=== PATIENT | female | born 1965 | race Caucasian/White ===

== ENCOUNTER 2018-12-09 06:05 | Inpatient (IN) | payer BC ==
--- NOTE | 2018-12-06 13:38 | HP ---
Admitting History and Physical - Primary Care Physician PCP: Kentrell Meza - Admission Chief Complaint: Left breast cancer History of Present Illness: 53 year old perimenapausal female with AX1N mutation BRCA1 negative, and a sister BRCA 1 positive with breast cancer at age 60 and a brother BRCA1 positive with pancreatic cancer.She underwent screening mammogram and US 10/2018 showing calcifications and slight associated density UIQ .9cm x1.5x1.1cm at 1: 00 2 cm FN was seen in left breast on US. There was also a separate suspicious densoity left breast 11:00 3 cm FN 5x5 mm. 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 Breast MRI showed localized left breast cancer and bno adenopathy. History Source: Patient Limitations to Obtaining History: No Limitations - Past Medical History Additional Past Medical History: Obesity - Past Surgical History Additional Past Surgical History: right thigh excision lipoma right core bx LCIS 2016 no excision follow up wnl - Smoking History Smoking history: Never smoked Have you smoked in the past 12 months: No - Alcohol/Substance Use Hx Alcohol Use: Yes (social) Home Medications - Allergies Allergies/Adverse Reactions: Allergies Allergy/AdvReac Type Severity Reaction Status Date / Time No Known Allergies Allergy Verified 12/06/18 13:39 Family Disease History - Family Disease History Family Disease History: CA: Grandparent (pat GM ovarian ca 40), Father (CRC 68) , Mother (lung ca), Brother (pancreatic ca BRCA1+// bother prostate ca 65), Sister (breast ca BRCA1+) Other Family History: pat uncle breast ca 80 Physical Examination Constitutional: Yes: Obese Breast(s): Yes: Other ( ptotic D cup breastspost bx scarring changes upper aspect left breast no adenopathy or palpated masses) Problem List - Problems (1) Breast cancer, left breast Code(s): C50.912 - MALIGNANT NEOPLASM OF UNSPECIFIED SITE OF LEFT FEMALE BREAST Qualifiers: Breast location: upper inner quadrant of breast Estrogen receptor status: positive Patient sex: female Qualified Code(s): C50.212 - Malignant neoplasm of upper-inner quadrant of left female breast; Z17.0 - Estrogen receptor positive status [ER+] Assessment/Plan Bilateral total mastectomies left sentenel node biopsy ,lymphoscintogram, possible axillary node dissection LESIA
[2018-12-09] MEDS ORDERED: ENOXAPARIN NA (PORCINE) 60 MG/0.6 ML DISP.SYRIN SQ ONE (07:00)
[2018-12-09] MEDS ORDERED: IBUPROFEN 800 MG/8 ML IJ IVPB ONE (07:09)
[2018-12-09] MEDS ORDERED: DEXMEDETOMIDINE HCL 200 MCG/2 ML IVPB ONE (07:09)
[2018-12-09] MEDS ORDERED: DESFLURANE GAS 240 ML BOTTLE IH ONE (07:10)
[2018-12-09] MEDS ORDERED: ROCURONIUM BROMIDE 50 MG/5 ML VIAL ONE (07:50)
[2018-12-09] MEDS ORDERED: SUCCINYLCHOLINE CHLORIDE 200 MG/10 ML SYRINGE ONE (07:51)
[2018-12-09] MEDS ORDERED: KETAMINE HCL 200 MG/20 ML VIAL ONE (07:53)
[2018-12-09] MEDS ORDERED: PROPOFOL 20 ML ONE ×4 (07:53→12:33)
[2018-12-09] MEDS ORDERED: MIDAZOLAM HCL 2 MG/2 ML SINGLE DOSE VIAL ONE (07:53)
[2018-12-09] MEDS ORDERED: LIDOCAINE HCL/PF 2% SDV 5ML VIAL ONE ×3 (07:59→08:16)
[2018-12-09] MEDS ORDERED: ceFAZolin SODIUM 1 GM VIAL ONE ×2 (08:16→23:38)
[2018-12-09] MEDS ORDERED: SODIUM CHLORIDE 0.9% P/F 10 ML VIAL IJ ONE (08:16)
[2018-12-09] MEDS ORDERED: ONDANSETRON 4 MG/2 ML VIAL ONE (08:16)
[2018-12-09] MEDS ORDERED: DEXAMETHASONE SOD PHOSPHATE 4 MG/1 ML VIAL ONE (08:16)
[2018-12-09] MEDS ORDERED: PAPAVERINE HCL 30 MG/1 ML 10 ML VIAL NR ONE (08:21)
[2018-12-09] MEDS ORDERED: HEPARIN NA (PORCINE) 5,000 UNITS/ML 1ML VIAL ONE (08:22)
[2018-12-09] MEDS ORDERED: BUPIVACAINE LIPOSOME/PF (EXPAREL) 266 MG/20 ML VIAL ONE (08:22)
[2018-12-09] MEDS ORDERED: MAGNESIUM SULF 50% (8.12 MEQ/2 ML-1 GM VIAL) ONE ×2 (08:22→14:36)
[2018-12-09] MEDS ORDERED: BUPIVACAINE HCL/PF 0.25% (2.5MG/ML) 10 ML VIAL ONE (08:22)
[2018-12-09] MEDS ORDERED: ACETAMINOPHEN INJECTION 100 ML IVPB ONE (08:24)
[2018-12-09] MEDS ORDERED: ISOSULFAN BLUE 10 MG/ML VIAL SQ ONE (08:34)
[2018-12-09] MEDS ORDERED: ceFAZolin SODIUM 1 GM VIAL IVPB ONE (09:22)
[2018-12-09] MEDS ORDERED: PHENYLEPHRINE HCL 10 MG/1 ML SINGLE DOSE VIAL ONE (09:47)
[2018-12-09] MEDS ORDERED: ePHEDrine SULFATE 50 MG/1 ML AMPULE ONE (09:50)
[2018-12-09] MEDS ORDERED: ONDANSETRON 4 MG/2 ML VIAL IVPUSH PRN (10:08)
[2018-12-09] MEDS ORDERED: LACTATED RINGERS SOLUTION 1,000 ML IV SCH (10:15)
[2018-12-09] MEDS ORDERED: VECURONIUM BROMIDE 10 MG VIAL ONE ×4 (10:35→16:29)
[2018-12-09] MEDS ORDERED: LIDOCAINE HCL 2% (20ML MULTI-DOSE VIAL) NR ONE (14:39)
[2018-12-09] MEDS ORDERED: KETOROLAC TROMETHAMINE 30 MG/1 ML VIAL ONE (16:43)
[2018-12-09] MEDS ORDERED: LABETALOL HCL 5 MG/1 ML (100MG/20 ML VIAL) ONE (17:01)
[2018-12-09] MEDS ORDERED: GLYCOPYRROLATE 0.2 MG/1 ML VIAL ONE (17:58)
[2018-12-09] MEDS ORDERED: NEOSTIGMINE METHYLSULFATE 0.5 MG/1 ML - 10 ML MDV ONE (17:58)
[2018-12-09] MEDS ORDERED: oxyCODONE HCL 5 MG TABLET PO PRN (18:00)
[2018-12-09] MEDS ORDERED: DEXTROSE 5%-0.45% SALINE 1,000 ML IV SCH (18:00)
[2018-12-09] MEDS: HYDROmorphone *PCA* 10MG/50ML DISP.SYRIN PCA SCH ×2 (18:35→19:53)
[2018-12-09] MEDS ORDERED: HYDROmorphone *PCA* 10MG/50ML DISP.SYRIN ONE (18:54)
[2018-12-09] MEDS: ASPIRIN 325 MG TABLET PO SCH (19:30)
[2018-12-09] MEDS ORDERED: ASPIRIN 325 MG ENTERIC COATED TABLET (FP) ONE (19:36)
[2018-12-09] MEDS: ACETAMINOPHEN 1000 MG/100 ML VIAL (NON FORMULARY) IVPB PRN ×2 (19:45→23:44)
[2018-12-09] MEDS ORDERED: CEFAZOLIN 1 GM in DEXTROSE 5%-WATER - 50 ML IVPB SCH (21:00)
--- NOTE | 2018-12-09 22:24 | CONSULT ---
Consultation: CONSULT SERVICE: ICU Resident HISTORY OF PRESENT ILLNESS: 53yo F with no significant history who presents today after b/l mastectomy with reconstruction in LESIA flap creation and sentinel node resection performed by Dr. eMza. Mastectomy was performed due to pt having 1st degree relative BRCA I positive with multiple masses seen on mammography and follow-up ultrasound. Pt is placed in ICU for doppler hourly check of LESIA flap. Pt's procedure was uncomplicated, had minimal EBL, and received 4L of IVF intraoperatively. Pt recovered without complication and is doing well with no complaints of pain at this time. FamHx: Sister - BRCA 1 +; Breast Ca 60yo Brother - BRCA 1 +; pancreatic Ca REVIEW OF SYSTEMS: As per HPI PHYSICAL EXAMINATION Vital Signs 12/09/18 12/09/18 12/09/18 06:49 06:50 18:21 Temperature 98.5 F 98.1 F Pulse Rate 75 64 Respiratory 18 14 Rate Blood Pressure 140/88 112/46 L O2 Sat by Pulse 99 100 Oximetry (%) 12/09/18 12/09/18 12/09/18 18:35 18:50 19:05 Temperature Pulse Rate 67 70 69 Respiratory 14 16 18 Rate Blood Pressure 98/61 110/57 L 106/58 L O2 Sat by Pulse 97 98 100 Oximetry (%) 12/09/18 12/09/18 12/09/18 19:20 19:35 19:50 Temperature Pulse Rate 67 65 70 Respiratory 16 14 14 Rate Blood Pressure 107/64 115/60 104/66 O2 Sat by Pulse 100 100 100 Oximetry (%) 12/09/18 12/09/18 20:05 20:20 Temperature Pulse Rate 66 65 Respiratory 14 14 Rate Blood Pressure 115/60 119/67 O2 Sat by Pulse 100 100 Oximetry (%) GENERAL: NAD, Awake, alert, and fully oriented HEENT: NC/AT, EOMI, TYSON, sclera anicteric, MMM NECK: No JVD LUNGS: Posterior lung auscultation CTA b/l. No wheezes, and no crackles. No accessory muscle use. RA SpO2 98% DOPPLERS: strong doppler sounds to b/l LESIA flaps HEART: RRR, normal S1 and S2 without murmurs ABDOMEN: Soft, NT/ND, hypoactive bowel sounds, no guarding, no rebound. EXTREMITIES: 2+ DP pulses, warm, well-perfused. No calf tenderness. No edema. NEUROLOGICAL: risk reduction counselor II-XII intact. Strength in all extremities 5/5. Sensation intact throughout. Normal speech. Gait not observed PSYCHIATRIC: Cooperative. Good eye contact. Appropriate mood and affect. SKIN: Warm, dry, no rashes. B/l incisions of chest without notable bleed. Laboratory Results - last 24 hr 12/09/18 12/09/18 12/09/18 06:34 06:34 07:20 Serum , Qual Negative Blood Type O POSITIVE O POSITIVE Antibody Screen Negative Active Medications Generic Name Dose Route Start Last Admin Trade Name Freq PRN Reason Stop Dose Admin Acetaminophen 1,000 mg 12/09/18 19:33 12/09/18 19:45 Ofirmev Injection - IVPB 1,000 mg Q6H PRN Administration PAIN LEVEL 1-5 Aspirin 325 mg 12/10/18 10:00 12/09/18 19:30 Asa - PO 325 mg DAILY ANN Administration Diazepam 5 mg 12/09/18 18:00 Valium - PO Q8H PRN MUSCLE SPASMS Docusate Sodium 100 mg 12/09/18 22:00 Colace - PO BID [facility] Enoxaparin Sodium 30 mg 12/10/18 10:00 Lovenox - SQ BID [facility] Fentanyl 50 mcg 12/09/18 10:08 Sublimaze Injection - IVPUSH [id number] PRN PAIN-PACU ORDER X 4 DOSES ONLY Dextrose/Sodium Chloride 1,000 mls @ 125 mls/hr 12/09/18 18:00 12/09/18 18:35 D5-1/2ns - IV 125 mls/hr ASDIR ANN Administration Cefazolin Sodium 1 gm/ 50 mls @ 100 mls/hr 12/09/18 23:30 Dextrose IVPB 12/10/18 23:29 Q6H ANN Ondansetron HCl 4 mg 12/09/18 10:08 Zofran Injection IVPUSH Q6H PRN NAUSEA AND/OR VOMITING Oxycodone HCl 10 mg 12/09/18 18:00 Roxicodone - PO Q4H PRN PAIN LEVEL 6-10 ASSESSMENT/PLAN: B/l Mastectomy with LESIA flap creation and sentinel node resection --Monitor in ICU due to acute doppler checks (q1h) --[place] MAPs of 70 with tight control to avoid underperfusion with LESIA flap vs. overcongestion of perforators --Maintain in beach-chair positioning to avoid excessive epigastric metallurgist helper tension --Pain well controlled due to Exporel tap --Will continue with Oxycodone 5mg/Oxycodone 10mg PRN depending on pt's severity --Tylenol IVPB on board for mild pain --Valium 5mg PO on board PRN for muscle spasms if they develop --Continue perioperative ABX per SCIP protocol --Continue D5-1/2NS@125cc/hr while patient transitioning back to PO intake FEN: Fluids: As above Electrolyte abnormalities: AM basic labs Nutrition: Transition as patient tolerate and as per surgical team PPX: DVT - Surgical team started on Lovenox 30mg BID SQ GI - Not indicated currently Dispo: Doppler checks; monitor in ICU Amaury Tyson DO - IM PGY-2 Visit type - Emergency Visit Emergency Visit: Yes ED Registration Date: 12/09/18 Care time: The patient presented to the Emergency Department on the above date and was hospitalized for further evaluation of their emergent condition. - New Patient This patient is new to me today: Yes Date on this admission: 12/10/18 - Critical Care Critical Care patient: Yes Total Critical Care Time (in minutes): 35 Critical Care Statement: The care of this patient involved high complexity decision making to prevent further life threatening deterioration of the patient 's condition and/or to evaluate & treat vital organ system(s) failure or risk of failure.
[2018-12-09] MEDS ORDERED: DEXTROSE 5%-WATER - 50 ML IVPB ONE (23:39)
[2018-12-09] MEDS: CEFAZOLIN 1 GM in DEXTROSE 5%-WATER - 50 ML IVPB SCH (23:42)
[2018-12-09] MEDS: DOCUSATE SODIUM 100 MG CAPSULE (FP) PO SCH (23:43)
[2018-12-10] MEDS: ACETAMINOPHEN 1000 MG/100 ML VIAL (NON FORMULARY) IVPB PRN ×2 (05:40→11:42)
[2018-12-10] MEDS ORDERED: ceFAZolin SODIUM 1 GM VIAL ONE ×3 (05:44→18:31)
[2018-12-10] MEDS ORDERED: DEXTROSE 5%-WATER - 50 ML IVPB ONE ×3 (05:44→18:31)
[2018-12-10] MEDS: CEFAZOLIN 1 GM in DEXTROSE 5%-WATER - 50 ML IVPB SCH ×3 (05:47→18:33)
--- NOTE | 2018-12-10 07:23 | OP ---
DATE OF OPERATION: 12/09/2018 PREOPERATIVE DIAGNOSIS: Left breast multicentric upper quadrant breast cancer. POSTOPERATIVE DIAGNOSIS: Left breast multicentric upper quadrant breast cancer with positive axillary lymph node. PRIMARY SURGEON: Nikita Bowling MD NURSE PRACTITIONER PHYSICIANS ASSISTANT: MATHIEU Oliveira PRIMARY SURGEON FOR THE BILATERAL DEEP FLAP RECONSTRUCTION: Nikita Gonzalez MD NURSE PRACTITIONER PHYSICIANS ASSISTANT: George Zhong MD, as well as MATHIEU Randhawa PROCEDURE: Bilateral total mastectomies with left axillary sentinel lymph node biopsy followed by left axillary lymph node dissection with bilateral deep flap reconstructions. ANESTHESIA: General endotracheal anesthesia. COMPLICATIONS: There were no complications. INDICATIONS: Briefly, the patient is a 53-year-old perimenopausal white female of [place] descent. She has a strong family history with her sister having breast cancer at age 60, brother had pancreatic cancer at age 71, another brother had prostate cancer age 65, and a paternal uncle had breast cancer at age 80. Her maternal grandmother had ovarian cancer in her 40s, and her father had colorectal cancer at age 68, and her mother had lung cancer at age 72. The patient was found to have some densities in the upper aspect of the left breast, in the upper inner quadrant and upper outer quadrant on screening mammography and ultrasound in October of 2018. Ultrasound-guided core biopsies in the 1 and 11 o'clock regions showed mixed ductal- lobular cancer, which was ER/IA positive, HER2/lindsay negative, with a high Ki-67. MRI showed the multicentric cancer in the left breast, but no adenopathy, and the right breast was negative. The patient underwent genetic testing and was BRCA negative even though there was BRCA gene in the family. She opted on bilateral total mastectomies and understood the need for a sentinel lymph node biopsy, possible axillary lymph node dissection. She was seen by plastic surgery and was felt to be a good candidate for deep flap reconstructions. DESCRIPTION OF PROCEDURE: The patient was brought in for the procedure on December 09, 2018. She first underwent a lymphoscintigraphy at [facility] and then was brought up to the holding area at [facility]. In the holding area, site verification was made and informed consent was obtained. She was marked preoperatively by the plastic surgeons. She was brought into the operating room, laid on the OR table in the supine position. Venodynes were placed on the lower extremities prior to induction. She did receive subcutaneous dose of Lovenox prior to the surgery. Ancef 2 g were given prior to incision. She was given general endotracheal anesthesia. Both breasts were sterilely prepped and draped in the usual fashion. The abdominal wall was also prepped in the field for the deep flap reconstruction. Then, 3 mL of lymphazurin blue were injected intradermally and peritumorally and around the nipple areolar complex. Massage was instituted. She was sterilely prepped and draped in the usual fashion. The sentinel lymph node biopsy was first performed and dissection was undertaken through an incision made just below the hair-bearing area of the left axilla. A blue hot node was easily found in the level 1 region of the left axilla. It was removed, had a 10-second gamma count of 41,029. Two other nodes were also found, which were slightly blue and hot, and the second sentinel lymph node had a 10-second gamma count of 2,923, with the third sentinel lymph node having a 10-second gamma count of 24,015. All sentinel nodes were sent for frozen section, and the first one came back positive. So, the patient understood that we were going forward with an axillary lymph node dissection. We went ahead and performed the mastectomy through a slight reduction pattern approach encompassing the entire nipple areolar complex, which was marked out by the plastic surgeon. Skin flaps were raised superiorly to the level of the clavicle, medially to the level of the sternum, laterally to the level of the latissimus, and inferiorly below the level of the inframammary fold. The breast was taken out off the pectoralis major muscle from medial to lateral, completely removed intact, and the axillary dissection was undertaken and blocked with the mastectomy specimen. A full level 1 level 2 axillary dissection was undertaken using the axillary vein as a superior border dissection, latissimus as a lateral border, and pectoralis minor as a medial border. The lymph nodes were completely cleared out using and sparing the long thoracic and thoracodorsal nerves throughout their entire courses. Hemostasis was achieved, and the wound was copiously irrigated with warm sterile saline. Separate anterior margins were taken on the upper inner and upper outer quadrants with the suture marking the biopsy cavity side, and these were sent separately to Pathology as anterior margins. Specimen radiograph was performed on the left breast and both clips were seen on the specimen radiograph. At this point, gloves, gowns were changed, and instruments were changed, and the right breast was approached. A prophylactic total mastectomy was performed on the right side. At this point, the plastic surgeon began performing the harvesting of the abdominal tissue for the deep flap reconstruction. Again, the right mastectomy was performed through a slight reduction pattern approach marked out by the plastic surgeons encompassing the entire nipple areolar complex. The skin flaps were raised superiorly to the level of the clavicle, medially to the level of the sternum, laterally to the level of the latissimus, and inferiorly below the level of the inframammary fold. The breast was taken out off the pectoralis major muscle from medial to lateral, and completely removed intact. It was oriented with the long-lateral short-superior suture, and weighed to allow for appropriate cosmetic result. All specimens were sent off the field in formalin, sent to Pathology at this point. There were some separate left axillary contents sent on the left side as a separate specimen, as well. Hemostasis was achieved. At this point, skin flaps were inspected and trimmed for good cosmetic result. Dr. Gonzalez and Dr. Zhong will dictate the rest of the reconstruction technique with bilateral deep flap reconstructions. All wounds will be closed by plastic surgery. She will have drains placed in the breasts postoperatively, and postoperatively will be recovered in the post-anesthesia care unit, then, will be brought to the ICU where she will be getting close Dopplers to the flaps and flap monitoring postoperatively. She did have a TAP block for postoperative pain control. All sponge and needle counts were correct at the end of the mastectomy, and estimated blood loss was about 150 mL at the end of the mastectomy. She was hemodynamically stable throughout. NIKITA BOWLING M.D. [id number]
[2018-12-10 07:36] LABS: HEMATOCRIT 30.7 % (32.4-45.2); HEMOGLOBIN 10.4 GM/dL (10.7-15.3); MCH 32.4 pg (25.7-33.7); MCHC 33.9 g/dl (32.0-36.0); MEAN CELL VOLUME 95.6 fl (80-96); MEAN PLT VOLUME 8.6 fl (7.5-11.1); RBC 3.21 M/mm3 (3.60-5.2); WHITE BLOOD COUNT 13.3 K/mm3 (4.0-10.0)
[2018-12-10 07:55] LABS: CALCIUM 7.8 mg/dL (8.5-10.1); CREATININE 0.9 mg/dL (0.55-1.3); POTASSIUM 4.2 mmol/L (3.5-5.1)
[2018-12-10 08:04] LABS: PLATELET COUNT 197 K/MM3 (134-434)
--- NOTE | 2018-12-10 08:38 | PN ---
Physical Exam: SUBJECTIVE: Patient seen and examined at bedside. No overnight events or complaints. AOX3 , NAD, sitting up in bed eating breakfast. Admits to passing flatus this am, making urine. Pt remains in beach- chair position to reduce tension on the abdomen. OBJECTIVE: Vital Signs Period Temp Pulse Resp BP Sys/[place] Pulse Ox Last 24 Hr 97.7 F-98.8 F 62-77 14-25 95-144/46-73 95-100 GENERAL: The patient is awake, alert, and fully oriented, in no acute distress. HEAD: Normal with no signs of trauma. EYES: PERRL, extraocular movements intact, sclera anicteric, conjunctiva clear. No ptosis. membranes. NECK: Trachea midline, full range of motion, supple. LUNGS: Breath sounds equal, clear to auscultation bilaterally, no wheezes, no crackles, no accessory muscle use. HEART: Regular rate and rhythm, S1, S2 without murmur, rub or gallop. ABDOMEN: Soft, nontender, nondistended, normoactive bowel sounds, no guarding, no rebound, no hepatosplenomegaly, no masses. EXTREMITIES: 2+ pulses, warm, well-perfused, no edema. NEUROLOGICAL: Cranial nerves II through XII grossly intact. Normal speech, gait not observed. PSYCH: Normal mood, normal affect. SKIN: Warm, dry, normal turgor, no rashes or lesions noted. Bilateral mastectomy with reconstruction with flap. Doppler positive for flow bilateral breast flap, no drainage. Laboratory Results - last 24 hr 12/09/18 12/09/18 12/10/18 06:34 07:20 07:24 WBC 13.3 H RBC 3.21 L Hgb 10.4 L Hct 30.7 L MCV 95.6 MCH 32.4 MCHC 33.9 RDW 14.0 Plt Count 197 MPV 8.6 Sodium Potassium Chloride Carbon Dioxide Anion Gap BUN Creatinine Est GFR (CKD-EPI)AfAm Est GFR (CKD-EPI)NonAf Random Glucose Calcium Blood Type O POSITIVE O POSITIVE Antibody Screen Negative 12/10/18 07:24 WBC RBC Hgb Hct MCV MCH MCHC RDW Plt Count MPV Sodium 136 Potassium 4.2 Chloride 107 Carbon Dioxide 23 Anion Gap 6 L BUN 23.0 H Creatinine 0.9 Est GFR (CKD-EPI)AfAm 84.61 Est GFR (CKD-EPI)NonAf 73.00 Random Glucose 138 H Calcium 7.8 L Blood Type Antibody Screen Active Medications Generic Name Dose Route Start Last Admin Trade Name Freq PRN Reason Stop Dose Admin Acetaminophen 1,000 mg 12/09/18 19:33 12/10/18 05:40 Ofirmev Injection - IVPB 1,000 mg Q6H PRN Administration PAIN LEVEL 1-5 Aspirin 325 mg 12/10/18 10:00 12/09/18 19:30 Asa - PO 325 mg DAILY ANN Administration Diazepam 5 mg 12/09/18 18:00 Valium - PO Q8H PRN MUSCLE SPASMS Docusate Sodium 100 mg 12/09/18 22:00 12/09/18 23:43 Colace - PO Not Given BID ANN Enoxaparin Sodium 30 mg 12/10/18 10:00 Lovenox - SQ BID ANN Fentanyl 50 mcg 12/09/18 10:08 Sublimaze Injection - IVPUSH [id number] PRN PAIN-PACU ORDER X 4 DOSES ONLY Dextrose/Sodium Chloride 1,000 mls @ 125 mls/hr 12/09/18 18:00 12/09/18 18:35 D5-1/2ns - IV 125 mls/hr ASDIR ANN Administration Cefazolin Sodium 1 gm/ 50 mls @ 100 mls/hr 12/09/18 23:30 12/10/18 05:47 Dextrose IVPB 12/10/18 23:29 100 mls/hr Q6H ANN Administration Ondansetron HCl 4 mg 12/09/18 10:08 Zofran Injection IVPUSH Q6H PRN NAUSEA AND/OR VOMITING Oxycodone HCl 10 mg 12/09/18 18:00 Roxicodone - PO Q4H PRN PAIN LEVEL 6-10 ASSESSMENT/PLAN: B/l Mastectomy with LESIA flap creation and sentinel node resection Discussed case with MATHIEU Suarez who states the Surgeon will assess the pt in the afternoon and to continue Q1H doppler for flow. --Monitor in ICU due to acute doppler checks (q1h) --[place] MAPs of 70 with tight control to avoid underperfusion with LESIA flap vs. overcongestion of perforators --Maintain in beach-chair positioning to avoid excessive epigastric still operator brandy tension --Pain well controlled due to Exporel tap --Will continue with Oxycodone 5mg/Oxycodone 10mg PRN depending on pt's severity --Tylenol IVPB on board for mild pain --Valium 5mg PO on board PRN for muscle spasms if they develop --Continue perioperative ABX per SCIP protocol --Continue D5-1/2NS@125cc/hr while patient transitioning back to PO intake FEN: Fluids: As above Electrolyte abnormalities: AM basic labs Nutrition: Transition as patient tolerate and as per surgical team PPX: DVT - Surgical team started on Lovenox 30mg BID SQ GI - Not indicated currently Dispo: Doppler checks Q1H; monitor in ICU Visit type - Emergency Visit Emergency Visit: No - New Patient This patient is new to me today: Yes Date on this admission: 12/16/18 - Critical Care Critical Care patient: Yes Total Critical Care Time (in minutes): 40 Critical Care Statement: The care of this patient involved high complexity decision making to prevent further life threatening deterioration of the patient 's condition and/or to evaluate & treat vital organ system(s) failure or risk of failure.
--- NOTE | 2018-12-10 08:39 | PN ---
Progress Note (short form) - Note Progress Note: POD 1, s/p B/l total mastectomies w/ L axillary sentinel lymph node biopsy/L axillary lymph node dissection with B/L LESIA flap reconstruction for L breast CA Pt seen and examined. States she is not having any pain currently. Reports lack of sleep overnight due to flap checks. Tolerating clears, no n/v. Parisi in place. No complaints or issues overnight. Denies cp/sob, calf pain/edema. Vital Signs Temp 98.8 F 12/10/18 05:21 Pulse 77 12/10/18 06:21 Resp 25 H 12/10/18 06:21 BP 115/65 12/10/18 06:21 Pulse Ox 95 12/10/18 03:50 Intake & Output 12/09/18 12/09/18 12/10/18 11:59 23:59 11:59 Intake Total 4000 300 1595 Output Total 650 735 880 Balance 3350 -435 715 Weight 312 lb Intake: IV 4000 300 875 D5-1/2Ns - 1,000 ml @ 125 875 mls/hr IV ASDIR ANN Rx#: [id number] Oral 720 Output: Drainage 435 580 #1 Right Upper Breast 30 60 #2 Right Lower Abdomen 20 50 #3 Left Upper Breast 15 95 #4 Left Upper Breast 50 105 Breast #4 5 Left Lower Abdomen 15 60 Left Upper Breast #3 95 Right Upper Breast #1 60 Rt Lower Abd #2 50 Urine 400 300 300 Parisi 300 Estimated Blood Loss 250 Other: Voiding Method Indwelling Catheter Bowel Movement No: + flatus Weight Measurement Method Built in [facility] CBC, BMP 12/10/18 07:24 12/10/18 07:24 Gen: awake, alert, nad Resp: Unlabored on RA Chest: Maciej hugger and bra in place, removed for exam. B/L flaps pale, remain warm to touch with Maciej hugger off for approx 15 mins (L slightly warmer than R) . +Surrounding ecchymosis bilaterally. Strong doppler signal present on L at suture site and on R at mid upper flap. Incisions all intact with no drainage noted. R JULIAN with approx 15 ml serosanguinous drainage in reservoir, L breast with JPs x2 (#3 drain with scant serosanguinous drainage in reservoir, #4 drain with approx 100ml serosanguinous drainage in reservoir). All drains stripped. Abdo: Incision intact with no erythema or drainage noted. B/L JULIAN drains with minimal serosanginous output in reservoirs (both drains stripped) A/P: 53 y/o F w/ PMHx morbid obesity, L breast CA, now POD 1, s/p B/l total mastectomies w/ L axillary sentinel lymph node biopsy/L axillary lymph node dissection with B/L LESIA flap reconstruction. Afebrile, VSS. Labs wnl. B/L flaps pale, however with excellent doppler signal and remain warm with Maciej hugger off for >10mins JULIAN outputs: #1 R Upper Breast: 60ml overnight, 90ml since OR #2 R Lower Abdomen: 50ml overnight, 70ml since OR #3 L Upper Breast: 95ml overnight, 110ml since OR #4 L Upper Breast: 105ml overnight, 155ml since OR with additional 100ml emptied at time of exam #5 L Lower Abdomen: 60ml overnight, 75ml since OR Parisi output: 300ml overnight -Continue to monitor pt in ICU -Continue q1hrs doppler checks -Keep Bare hugger in place at all times -Keep pt in beach chair position -Pain control as ordered -Continue periop abx -Keep JPs in place, strip drains qshift -Keep parisi in place -Monitor I&Os -Clear liquid diet, NO CAFFEINE OR CHOCOLATE -Continue ASA 325mg qd -DVT prophylaxis with b/l scds and Lovenox 30mg bid -Bowel regimen -Above d/w ICU resident, please CALL SURGERY immediately if any issues with doppler signals or any changes with flaps -Will follow throughout the day d/w attending Dr Zhong
[2018-12-10] MEDS ORDERED: oxyCODONE HCL 5 MG TABLET PO PRN (09:02)
[2018-12-10] MEDS: ENOXAPARIN NA (PORCINE) 30 MG/0.3 ML DISP.SYRIN SQ SCH ×2 (10:00→22:15)
[2018-12-10] MEDS ORDERED: ENOXAPARIN NA (PORCINE) 40 MG/0.4 ML DISP.SYRIN SQ SCH (10:00)
[2018-12-10] MEDS: DOCUSATE SODIUM 100 MG CAPSULE (FP) PO SCH ×2 (10:00→22:15)
[2018-12-10] MEDS: ASPIRIN 325 MG TABLET PO SCH (10:00)
--- NOTE | 2018-12-10 11:27 | PN ---
Teaching Attending Note Name of Resident: Gaurav Rodriguez ATTENDING PHYSICIAN STATEMENT I saw and evaluated the patient. I reviewed the resident's note and discussed the case with the resident. I agree with the resident's findings and plan as documented. SUBJECTIVE: Patient seen and examined in the ICU. Awake and alert. Pain and discomfort at the surgical site. Has requested percocet. Apparently some there is a slight color change (seen by surgical PA this AM and pending evaluation by plastic surgery). No SOB. Intake & Output 12/07/18 12/08/18 12/09/18 12/10/18 23:59 23:59 23:59 23:59 Intake Total 4300 1595 Output Total 1385 1045 Balance 2915 550 Weight 295 lb 312 lb Last Vital Signs Temp Pulse Resp BP Pulse Ox 99.5 F 78 20 122/69 96 12/10/18 08:00 12/10/18 10:00 12/10/18 10:00 12/10/18 10:00 12/10/18 10:00 Active Medications Acetaminophen (Ofirmev Injection -) 1,000 mg IVPB Q6H PRN PRN Reason: PAIN LEVEL 1-5 Last Admin: 12/10/18 05:40 Dose: 1,000 mg Aspirin (Asa -) 325 mg PO DAILY [facility] Last Admin: 12/10/18 10:00 Dose: 325 mg Diazepam (Valium -) 5 mg PO Q8H PRN PRN Reason: MUSCLE SPASMS Docusate Sodium (Colace -) 100 mg PO BID [facility] Last Admin: 12/10/18 10:00 Dose: 100 mg Enoxaparin Sodium (Lovenox -) 30 mg SQ BID [facility] Last Admin: 12/10/18 10:00 Dose: 30 mg Fentanyl (Sublimaze Injection -) 50 mcg IVPUSH [id number] PRN PRN Reason: PAIN-PACU ORDER X 4 DOSES ONLY Dextrose/Sodium Chloride (D5-1/2ns -) 1,000 mls @ 125 mls/hr IV ASDIR [facility] Last Admin: 12/09/18 18:35 Dose: 125 mls/hr Cefazolin Sodium 1 gm/ (Dextrose) 50 mls @ 100 mls/hr IVPB Q6H [facility] Stop: 12/10/18 23:29 Last Admin: 12/10/18 05:47 Dose: 100 mls/hr Ondansetron HCl (Zofran Injection) 4 mg IVPUSH Q6H PRN PRN Reason: NAUSEA AND/OR VOMITING Oxycodone HCl (Roxicodone -) 10 mg PO Q4H PRN PRN Reason: PAIN LEVEL 6-10 Oxycodone HCl (Roxicodone -) 5 mg PO Q4H PRN PRN Reason: PAIN LEVEL 1-5 Last Admin: 12/10/18 11:14 Dose: 5 mg OBJECTIVE: GENERAL: The patient is awake, alert, and fully oriented, in no acute distress. HEAD: Normal with no signs of trauma. EYES: PERRL, extraocular movements intact, sclera anicteric, conjunctiva clear. No ptosis. NECK: Trachea midline, full range of motion, supple. CHEST: dressings and bandages intact LUNGS: Breath sounds equal, clear to auscultation bilaterally, no wheezes, no crackles, no accessory muscle use. HEART: Regular rate and rhythm, S1, S2 without murmur, rub or gallop. ABDOMEN: Soft, nontender, nondistended, normoactive bowel sounds, no guarding, no rebound, no hepatosplenomegaly, no masses. EXTREMITIES: 2+ pulses, warm, well-perfused, no edema. NEUROLOGICAL: Non-focal PSYCH: Normal mood, normal affect. SKIN: Warm, dry, normal turgor, no rashes or lesions noted. Bilateral mastectomy with reconstruction with flap. Doppler positive for flow bilateral breast flap, no drainage. Laboratory Results - last 24 hr 12/09/18 12/09/18 12/10/18 06:34 07:20 07:24 WBC 13.3 H RBC 3.21 L Hgb 10.4 L Hct 30.7 L MCV 95.6 MCH 32.4 MCHC 33.9 RDW 14.0 Plt Count 197 MPV 8.6 Sodium Potassium Chloride Carbon Dioxide Anion Gap BUN Creatinine Est GFR (CKD-EPI)AfAm Est GFR (CKD-EPI)NonAf Random Glucose Calcium Blood Type O POSITIVE O POSITIVE Antibody Screen Negative 12/10/18 07:24 WBC RBC Hgb Hct MCV MCH MCHC RDW Plt Count MPV Sodium 136 Potassium 4.2 Chloride 107 Carbon Dioxide 23 Anion Gap 6 L BUN 23.0 H Creatinine 0.9 Est GFR (CKD-EPI)AfAm 84.61 Est GFR (CKD-EPI)NonAf 73.00 Random Glucose 138 H Calcium 7.8 L Blood Type Antibody Screen ASSESSMENT/PLAN: POD# 1 B/l Mastectomy with LESIA flap creation and sentinel node resection Morbid Obesity (?) OSAS Plastic surgery follow up. O2 as needed to maintain saturation Incentive Spirometry Local wound care per surgery IVF PO as tolerated Pain control VTE prophylaxis Requires ICU monitoring for Q1 doppler checks Dr Celaya Critical care time spent in reviewing chart, evaluating patient and formulating plan - 36 minutes.
--- NOTE | 2018-12-10 11:51 | PN ---
Progress Note, Physician Chief Complaint: Left breast cancer S/P bilateral total mastctomies left sentenel node biopsy LESIA reconstruction POD #1 History of Present Illness: Patient is drinking, pain controlled with current medication, parisi to be dcd when OOB fluids decreased as patient is drinking, diet to be advanced - Current Medication List Current Medications: Active Medications Acetaminophen (Ofirmev Injection -) 1,000 mg IVPB Q6H PRN PRN Reason: PAIN LEVEL 1-5 Last Admin: 12/10/18 05:40 Dose: 1,000 mg Aspirin (Asa -) 325 mg PO DAILY [facility] Last Admin: 12/10/18 10:00 Dose: 325 mg Diazepam (Valium -) 5 mg PO Q8H PRN PRN Reason: MUSCLE SPASMS Docusate Sodium (Colace -) 100 mg PO BID [facility] Last Admin: 12/10/18 10:00 Dose: 100 mg Enoxaparin Sodium (Lovenox -) 30 mg SQ BID [facility] Last Admin: 12/10/18 10:00 Dose: 30 mg Fentanyl (Sublimaze Injection -) 50 mcg IVPUSH [id number] PRN PRN Reason: PAIN-PACU ORDER X 4 DOSES ONLY Dextrose/Sodium Chloride (D5-1/2ns -) 1,000 mls @ 125 mls/hr IV ASDIR [facility] Last Admin: 12/09/18 18:35 Dose: 125 mls/hr Cefazolin Sodium 1 gm/ (Dextrose) 50 mls @ 100 mls/hr IVPB Q6H [facility] Stop: 12/10/18 23:29 Last Admin: 12/10/18 05:47 Dose: 100 mls/hr Ondansetron HCl (Zofran Injection) 4 mg IVPUSH Q6H PRN PRN Reason: NAUSEA AND/OR VOMITING Oxycodone HCl (Roxicodone -) 10 mg PO Q4H PRN PRN Reason: PAIN LEVEL 6-10 Oxycodone HCl (Roxicodone -) 5 mg PO Q4H PRN PRN Reason: PAIN LEVEL 1-5 Last Admin: 12/10/18 11:14 Dose: 5 mg - Objective Vital Signs: Vital Signs Temperature 99.5 F 12/10/18 08:00 Pulse Rate 78 12/10/18 10:00 Respiratory Rate 20 12/10/18 10:00 Blood Pressure 122/69 12/10/18 10:00 O2 Sat by Pulse Oximetry (%) 96 12/10/18 10:00 Constitutional: Yes: No Distress Breast(s): Yes: Other (Bilateral flaps viable moderate echymosis ,good color Pulses strong and equal biphasic pulse, abdominal incision intact no signs of hematoma or infection drains milked and) Labs: CBC, BMP 12/10/18 07:24 12/10/18 07:24 Problem List - Problems (1) Breast cancer, left breast Code(s): C50.912 - MALIGNANT NEOPLASM OF UNSPECIFIED SITE OF LEFT FEMALE BREAST Qualifiers: Breast location: upper inner quadrant of breast Estrogen receptor status: positive Patient sex: female Qualified Code(s): C50.212 - Malignant neoplasm of upper-inner quadrant of left female breast; Z17.0 - Estrogen receptor positive status [ER+] Assessment/Plan spirometry SCD in bed Lovenox SQ BID oxycodone for pain prn DC isak OOB in chair with assistance oper Dr zhong physical therapist for ambulation in flexed position at all times per Dr zhong monitor flap pulse Q2 hours per Dr zhong VNS DC donaldo huagger per Dr Zhong advanced diet excluding chocolate and caffeine
--- NOTE | 2018-12-10 11:54 | PN ---
Progress Note (short form) - Note Progress Note: POD#1 s/p bilateral skin-sparing mastectomies, left ALNDx, and immediate reconstruction with bilateral LESIA flaps. Overnight, she has been stable with pain controlled with IV Tylenol and PO Oxycodone. Tolerating clear liquids. AVSS I/O (Including OR from yesterday): 4300/1385 UO:70cc JULIAN: 120/95/95/165/5 On exam, she is awake, alert, mentating normally. Bilateral breasts are soft. Appropriate ecchymosis of bilateral mastectomy skin flaps. LESIA skin paddles are warm with biphasic doppler signals. JULIAN output serosang. Abdomen is soft, obese, ND. Incisions C/D/I. JULIAN drainage serosang. A/P: -Advance diet as tolerated (no caffeine or chocolate) -Decrease IVF to 75cc/hr->may hep lock once good PO -May decrease flap checks to Q2 hours -D/C Bare hugger -OOB to chair, then ambulate with PT -D/C Power once OOB -DVT prophylaxis (Lovenox and SCD boots) -Daily ASA -Encourage IS -Continue IV Abx -No more labs unless clinically indicated
[2018-12-10] MEDS: DEXTROSE 5%-0.45% SALINE 1,000 ML IV SCH (12:00)
--- NOTE | 2018-12-10 13:00 | PN ---
Progress Note (short form) - Note Progress Note: Anesthesia POD#1 S/P Bilateral mastectomy with flap reconstruction under GA VSS,no N/V,using Dilaudid PAYER SPECIALIST for pain,drowsy at this time. Not taking PO meds yet. A/P Doing well. Continue IV PAYER SPECIALIST for today. Remedios Varner MD
--- NOTE | 2018-12-10 13:11 | PN ---
Progress Note (short form) - Note Progress Note: Addendem by anesthesia She is not on INSTRUMENTATION SPECIALIST. Doing well on intermittent doses. Taking oral food well. Remedios Varner MD
[2018-12-10] MEDS ORDERED: ACETAMINOPHEN 500 MG TABLET (FP) PO PRN (16:43)
[2018-12-10] MEDS ORDERED: RANITIDINE HCL 150 MG TABLET (FP) PO PRN (16:46)
[2018-12-10] MEDS: traMADol HCL 50 MG TABLET PO PRN ×2 (18:36→22:15)
[2018-12-10] MEDS: ACETAMINOPHEN 500 MG TABLET (FP) PO PRN (19:49)
[2018-12-11] MEDS: ACETAMINOPHEN 500 MG TABLET (FP) PO PRN ×3 (02:27→23:42)
[2018-12-11] MEDS: traMADol HCL 50 MG TABLET PO PRN ×3 (05:59→20:32)
[2018-12-11] MEDS: DEXTROSE 5%-0.45% SALINE 1,000 ML IV SCH (06:01)
[2018-12-11] MEDS: diazePAM 5 MG TABLET PO PRN ×2 (07:46→23:42)
[2018-12-11] MEDS: ASPIRIN 325 MG TABLET PO SCH (09:54)
[2018-12-11] MEDS: ENOXAPARIN NA (PORCINE) 30 MG/0.3 ML DISP.SYRIN SQ SCH ×2 (09:54→21:26)
--- NOTE | 2018-12-11 09:58 | PN ---
Progress Note, Physician Chief Complaint: Left breast cancer multicentric s/p bilateral total mastectomies with left axillary sentinel node biopsy and axillary lymph node dissection with bilateral LESIA flap reconstruction History of Present Illness: The patient was diagnosed with left breast multicentric breast cancer in the UOQ and UIQ after screening mammography and ultrasound and required a left breast mastectomy and decided on bilateral mastectomies which was performed with bilateral LESIA reconstructions on December 09. She was admitted postoperatively for post op pain and wound management. - Current Medication List Current Medications: Active Medications Acetaminophen (Tylenol -) 1,000 mg PO Q6H PRN PRN Reason: PAIN OR FEVER Last Admin: 12/11/18 07:46 Dose: 1,000 mg Aspirin (Asa -) 325 mg PO DAILY [facility] Last Admin: 12/10/18 10:00 Dose: 325 mg Diazepam (Valium -) 5 mg PO Q8H PRN PRN Reason: MUSCLE SPASMS Last Admin: 12/11/18 07:46 Dose: 5 mg Docusate Sodium (Colace -) 100 mg PO BID [facility] Last Admin: 12/10/18 22:15 Dose: 100 mg Enoxaparin Sodium (Lovenox -) 30 mg SQ BID [facility] Last Admin: 12/10/18 22:15 Dose: 30 mg Dextrose/Sodium Chloride (D5-1/2ns -) 1,000 mls @ 75 mls/hr IV ASDIR [facility] Last Admin: 12/11/18 06:01 Dose: 75 mls/hr Ondansetron HCl (Zofran Injection) 4 mg IVPUSH Q6H PRN PRN Reason: NAUSEA AND/OR VOMITING Ranitidine HCl (Zantac -) 150 mg PO DAILY PRN PRN Reason: INDIGESTION Last Admin: 12/10/18 18:37 Dose: 150 mg Tramadol HCl (Ultram -) 50 mg PO Q4H PRN PRN Reason: PAIN LEVEL 6-10 Last Admin: 12/11/18 05:59 Dose: 50 mg - Objective Vital Signs: Vital Signs Temperature 98.7 F 12/11/18 06:00 Pulse Rate 75 12/11/18 06:00 Respiratory Rate 25 H 12/11/18 06:00 Blood Pressure 123/78 12/11/18 06:00 O2 Sat by Pulse Oximetry (%) 98 12/11/18 09:00 Constitutional: Yes: Well Nourished, No Distress, Calm Eyes: Yes: WNL HENT: Yes: WNL Neck: Yes: WNL Cardiovascular: Yes: Regular Rate and Rhythm Respiratory: Yes: Regular, CTA Bilaterally ...Rectal Exam: Yes: Deferred Genitourinary: Yes: WNL Breast(s): Yes: Other (Bilateral mastectomy wounds clean, dry, intact. Drains functioning well. Excellent dopplerable pulses bilaterally. Some bruising and moderate ischemia in skin flap on right lower [place] skin flap) Wound/Incision: Yes: Clean/Dry, Well Approximated Neurological: Yes: Alert, Oriented ...Motor Strength: WNL Psychiatric: Yes: WNL Labs: CBC, BMP 12/10/18 07:24 12/10/18 07:24 Problem List - Problems (1) Breast cancer, left breast Assessment/Plan: She is doing well POD#2 s/p bilateral total mastectomies with left axillary lymph node dissection and bilateral LESIA flap reconstruction. Incision wounds clean, dry, and intact. Drains functioning well. LESIA flaps warm viable with excellent dopplerable signals. Skin flaps viable but some ischemia on lower right [place] skin flap. Good pain control now on tramadol since did not tolerate oxycontin. OOB ambulating today. Continue antibiotics. tolerating diet. Likely discharge tomorrow AM. Code(s): C50.912 - MALIGNANT NEOPLASM OF UNSPECIFIED SITE OF LEFT FEMALE BREAST Qualifiers: Breast location: overlapping sites of breast Estrogen receptor status: positive Patient sex: female Qualified Code(s): C50.812 - Malignant neoplasm of overlapping sites of left female breast; Z17.0 - Estrogen receptor positive status [ER+]
[2018-12-11] MEDS: DOCUSATE SODIUM 100 MG CAPSULE (FP) PO SCH ×2 (10:00→21:26)
--- NOTE | 2018-12-11 10:21 | DS ---
Physical Examination Vital Signs: Vital Signs Temperature 98.7 F 12/11/18 06:00 Pulse Rate 75 12/11/18 06:00 Respiratory Rate 25 H 12/11/18 06:00 Blood Pressure 123/78 12/11/18 06:00 O2 Sat by Pulse Oximetry (%) 98 12/11/18 09:00 Constitutional: Yes: Well Nourished, No Distress, Calm Eyes: Yes: WNL HENT: Yes: WNL Neck: Yes: WNL Cardiovascular: Yes: Regular Rate and Rhythm Respiratory: Yes: Regular, CTA Bilaterally Gastrointestinal: Yes: Normal Bowel Sounds, Soft ...Rectal Exam: Yes: Deferred Renal/: Yes: WNL Breast(s): Yes: Other (Mastectomy wounds clean, dry, and intact. Drains functioning well. LESIA flaps with good dopplerable signals. Skin flap with some ischemia on right lower flap.) Musculoskeletal: Yes: WNL Extremities: Yes: WNL Wound/Incision: Yes: Clean/Dry, Well Approximated Neurological: Yes: Alert, Oriented Psychiatric: Yes: WNL Labs: CBC, BMP 12/10/18 07:24 12/10/18 07:24 Discharge Summary Reason For Visit: LT BREAST CA Left breast cancer muticentric in UOQ and UIQ. Procedures: Principal: Bilateral total mastectomies with left sentinel lymph node biopsy and axillary lymph node dissection with bilateral LESIA flap reconstructions Hospital Course: The patient did well postoperatively and was monitored in the ICU postoperatively for frequent flap checks and wound management. She did well and was OOB on POD#1. She had good pain control on tramadol and her LESIA flaps were viable with good dopplerable signals. She was felt stable for discharge on POD#3. Condition: Good - Instructions Diet, Activity, Other Instructions: Post Operative Instructions - [facility] We hope your recovery will be uneventful. For those of you who have been given general anesthesia, there is a possibility you might have some lightheadedness and possibly nausea. It is important that each patient, especially those who have had general anesthesia, follow these instructions, please: 1. Do NOT operate a motor vehicle for 24 hours. 2. Do NOT drink any alcoholic beverages for 24 hours. 3. Do NOT take any sedatives, narcotics, or tranquilizers for 24 hours unless specifically ordered by your surgeon. 4. Do NOT undertake any strenuous exercise or outside activity for 24 hours unless specifically permitted by your surgeon. 5. Eat light foods that are easy to digest. If you have any problems with nausea and vomiting, lie down and rest. If it continues, call your surgeon. 6. Call your surgeon AT ONCE if you have problems with: a. Bleeding b. Urinating c. Excessive pain or drainage d. Numbness If any problems occur, call your physician first. If you cannot reach him/her, call the Ambulatory Surgery Unit at [phone], or the Emergency Room at [phone]. Follow up with Drs. Meza / Leodan in 7 days. Medication: Vicodin E-S OR Percocet 1-2 tablets every 4-6 hrs as needed for 5-7 days. Wound Care: Keep wound dry and clean for 48 hours. You may remove the dressing after 48 hours and may shower. Keep steri-strips in place until follow-up appointment No heavy lifting or strenuous activities. Post Operative Instructions - [facility] We hope your recovery will be uneventful. For those of you who have been given general anesthesia, there is a possibility you might have some lightheadedness and possibly nausea. It is important that each patient, especially those who have had general anesthesia, follow these instructions, please: 1. Do NOT operate a motor vehicle for 24 hours. 2. Do NOT drink any alcoholic beverages for 24 hours. 3. Do NOT take any sedatives, narcotics, or tranquilizers for 24 hours unless specifically ordered by your surgeon. 4. Do NOT undertake any strenuous exercise or outside activity for 24 hours unless specifically permitted by your surgeon. 5. Eat light foods that are easy to digest. If you have any problems with nausea and vomiting, lie down and rest. If it continues, call your surgeon. 6. Call your surgeon AT ONCE if you have problems with: a. Bleeding b. Urinating c. Excessive pain or drainage d. Numbness If any problems occur, call your physician first. If you cannot reach him/her, call the Ambulatory Surgery Unit at [phone], or the Emergency Room at [phone]. Follow up with Drs. Meza / Leodan in 7 days. Medication: Vicodin E-S OR Percocet 1-2 tablets every 4-6 hrs as needed for 5-7 days. Wound Care: Keep wound dry and clean for 48 hours. You may remove the dressing after 48 hours and may shower. Keep steri-strips in place until follow-up appointment No heavy lifting or strenuous activities. NO shower, wear bra, empty and milk and record JULIAN output twice daily, ASA 81 mg daily WALK in flexed position at all times Referrals: Kentrell Meza MD [Staff Physician] - Lake Gonzalez MD [Staff Physician] - Disposition: HOME - Home Medications Comprehensive Discharge Medication List: Ambulatory Orders Aspirin [ASA -] 81 mg PO DAILY #20 tab.chew 12/10/18 Cefadroxil 500 mg PO BID #20 capsule 12/10/18 Oxycodone HCl/Acetaminophen [Percocet 5-325 mg Tablet] 1 - 2 tab PO Q6H PRN #30 tab MDD 6 12/10/18 Diazepam [Valium] 5 mg PO Q8H PRN #20 tablet MDD 2 12/11/18 Tramadol HCl 50 mg PO Q4HWA PRN #30 tablet MDD 6 12/11/18
--- NOTE | 2018-12-11 20:36 | OP ---
DATE OF OPERATION: 12/09/2018 PREOPERATIVE DIAGNOSES: 1. Left breast cancer. 2. Acquired absence of bilateral breasts and nipples. POSTOPERATIVE DIAGNOSES: 1. Left breast cancer. 2. Acquired absence of bilateral breasts and nipples. PROCEDURES PERFORMED: 1. Immediate left breast reconstruction with deep inferior epigastric cherry pitter microvascular free flap. 2. Immediate right breast reconstruction with deep inferior epigastric cherry pitter microvascular free flap. 3. Bilateral partial 3rd rib resection. 4. Bilateral exploration of internal mammary vessels, with extensive adventitectomies. 5. Bilateral mastectomy skin flap and lower abdominal flap intraoperative angiography using indocyanine green. 6. Processing and interpretation of bilateral intraoperative angiography images. 7. Bilateral ultrasound-guided transversus abdominis plane regional nerve blocks. ATTENDING SURGEON: Roge Zhong M.D. CO-SURGEON: eKntrell Gonzalez M.D. BREAST SURGEON: Kentrell Meza M.D. ANESTHESIA: General endotracheal. ESTIMATED BLOOD LOSS: 250 mL. SPECIMENS: 1. Left total mastectomy per [facility] (1208 g). 2. Left axillary lymph node dissection per [facility]. 3. Right total mastectomy per [facility] (1143 g). DRAINS: 1. No. 19 round Genaro drain x2 to left breast. 2. No. 19 round Genaro drain x1 to right breast. 3. No. 19 round Genaro drain x2 to abdomen. COMPLICATIONS: None. CONDITION: Stable to the recovery room, extubated. INDICATIONS: The patient is a 53-year-old female with a recent diagnosis of left breast cancer. She has been recommended for a left skin-sparing mastectomy with sentinel lymph node biopsy. The patient has elected to undergo a right prophylactic mastectomy as well. The patient was evaluated preoperatively for immediate bilateral breast reconstruction, and she is most appropriately a candidate for autologous reconstruction using her lower abdominal tissue. The risks, benefits and alternatives of the reconstructive procedures were discussed with the patient preoperatively in detail and all questions were answered. The risks include but are not limited to bleeding, infection, pain, need for revision or further surgery, partial or complete flap loss, partial or complete skin loss, damage to neighboring structures (including nerves, arteries, veins and tendons). The patient understands these risks and has elected to proceed with surgery. DESCRIPTION OF PROCEDURE: After proper identification and marking of the patient in the preoperative holding area, the patient was transported to the operating room and placed supine on the table, where noninvasive anesthesia monitors were applied. Intravenous access was established. General anesthesia was administered and the patient was intubated without difficulty. SCD boots were applied to bilateral extremities. Subcutaneous Lovenox was given. Intravenous antibiotics were then given. A Power catheter was then placed. At this point, the patient's bilateral breasts, left upper extremity and abdomen and flanks were prepped and draped in the usual sterile fashion. After a time-out was performed, Dr. Meza from [facility] proceeded to perform bilateral skin-sparing mastectomies, as well as a left sentinel lymph node biopsy. The intraoperative frozen section on the lymph node was positive and therefore a left axillary lymph node dissection was performed. These procedures will all be dictated separately by Dr. Meza. Concurrently, Dr. Gonzalez and I began the reconstruction, working independently as co-surgeons, with separate instrument setups. Attention was first turned towards the abdomen, where skin hooks were placed at the 12 and 6 o'clock positions of the umbilicus. The umbilicus was circumferentially incised with a No. 15 blade. Periumbilical dissection was then performed with Metzenbaum scissors, with care taken to leave adequate periumbilical fat. Next, the superior and inferior limbs of the lower abdominal flap were incised. The superior limb was carried down through the full thickness of the subcutaneous tissue with electrocautery, with care taken to bevel slightly outwards. Once the anterior abdominal wall was reached, the superior abdominal skin flap was raised up to the xiphoid process in the midline and the costal margin bilaterally. The inferior incision was then carried down through the subcutaneous tissue in a layer by layer fashion with electrocautery. Bilateral superficial inferior epigastric veins were noted to be quite large, and a more proximal dissection was performed on each of these veins using microvascular instruments and techniques. Care was taken to individually identify side branches, and these were circumferentially dissected, ligated and divided. Once adequate length and caliber had been achieved in the bilateral superficial veins, they were ligated and divided, and the remainder of the subcutaneous tissue dissected down to the level of the anterior abdominal wall. At this point the lower abdominal tissue was incised in the midline and the dissection carried down through the full thickness of the subcutaneous tissue to the level of the linea alba. At this point, attention was turned towards the patient's right-sided lower abdominal flap. Zone 2 from this flap was excised and discarded, given the amount of donor site volume. The lower abdominal flap was then raised from both medial and lateral directions, just above the level of the anterior abdominal wall. There were noted to be 3 large lateral row perforators just below the level of the umbilicus, sitting horizontally right next to each other, and the decision was made to base the right-sided flap off of these 3 lateral row perforators. The perforators were circumferentially dissected as they exited through the fascia. The fascia was then opened superiorly and inferiorly, as well as the intervening fascia between the perforators. At this point, individual retrograde cherry pitter dissections were performed through the full thickness of the rectus abdominis muscle fibers. Care was taken to divide the muscle fibers longitudinally as much as possible. A segment of rectus abdominis muscle fibers did require division, given the horizontal orientation of the dominant perforators. Care was taken to individually identify, circumferentially dissect, ligate and divide muscular side branches. The perforators were individually dissected down to their takeoffs from the inferior epigastric pedicle. The superior continuation of the pedicle was then ligated and divided. A more proximal pedicle dissection was then performed until adequate length and caliber had been achieved, and the inferior epigastric artery as well as accompanying vena comitans were individually isolated. At this point the remainder of the lower abdominal tissue was raised off of the anterior abdominal wall on the right side. The flap was then temporarily stapled in place. A Doppler examination was then performed and revealed a strong biphasic signal, and this was marked with a 5-0 Prolene suture, and a circular skin paddle was then designed and the remainder of the flap de-epithelialized. At this point, attention was turned towards the left-sided lower abdominal flap, which was raised in the exact same fashion as the right side, and therefore only 1 side will be dictated. On the left-sided flap, there were again noted to be dominant lateral row perforators and 3 of these were identified. In a similar fashion as to the right side, individual retrograde cherry pitter dissections were performed through the rectus abdominis muscle fibers. The perforators were dissected down to their takeoffs from the inferior epigastric pedicle, and the superior continuation was ligated and divided. In a similar fashion as to the right side, a proximal pedicle dissection was performed, and therefore only 1 side will be dictated. Once the pedicle dissection was completed on the left side, the remainder of the lower abdominal tissue was raised off the anterior abdominal wall. The flap was temporarily stapled in place. A Doppler examination, skin paddle and de-epithelialized were performed on the left-sided flap in the exact same fashion as the right side, and therefore only 1 side will be dictated. Once bilateral lower abdominal flaps had been completely dissected, attention was turned towards the intraoperative angiography. The SPY system was brought onto the field and was sterilely draped. A 5-mL intravenous injection of indocyanine green was given, and angiography was performed of bilateral mastectomy skin flaps as well as bilateral lower abdominal flaps. These bilateral angiography images were then processed and relative perfusion data was used to assess the viability of the skin flaps and lower abdominal flap. There was noted to be adequate perfusion, and therefore attention was turned towards harvesting of recipient vessels. Attention was first turned towards the left breast pocket, which was copiously irrigated, and hemostasis was ensured. Self-retaining retractors were then placed. There was noted to be a 2nd intercostal space perforating artery and vein, and attention was first turned towards dissection of this. Microvascular instruments and techniques were used to isolate the perforating vein. Once adequate length and caliber had been achieved, an Acland clamp was placed proximally and the vein was ligated and divided distally. The vein was then flipped down onto the chest wall. The interspace between the 2nd and 3rd ribs was then identified. The pectoralis major muscle fibers were divided overlying this interspace, with care taken to protect the perforating vein. The pectoralis muscle fibers were then retracted, and the periosteum and perichondrium on the superior surface of the 3rd rib were incised. A circumferential subperiosteal and subperichondrial dissection was then performed around the left 3rd rib, and a large rongeur was used to perform partial resection of the left 3rd rib at the costochondral junction. On the deep surface, the periosteum and perichondrium were carefully incised, and the underlying internal mammary artery and accompanying medial vein were identified. Using microvascular instruments and techniques, a formal exploration of these vessels was performed and extensive adventitectomies were performed along the artery and vein. Once adequate exposure and dissection of the vessels had been performed, attention was turned towards the right breast pocket, where the exact same procedures were performed in order to isolate a perforating vein and partially resect the right 3rd rib and explore the internal mammary vessels, and therefore only 1 side will be dictated. At this point, attention was turned towards the microvascular transfers. The right-sided lower abdominal flap was ligated and divided at the most proximal extent of the pedicle dissection. It was sterilely weighed and noted to weigh 1371 g. It was brought up to the left breast pocket, where it was temporarily stapled in place. The microvascular anastomoses were then performed. The first venous anastomosis between the antegrade stump of the internal mammary vein and the more lateral vein of the inferior epigastric pedicle was performed using a 3.0-mm [employer] database administrator. Release of all clamps revealed good back flow across this anastomosis. Next, a second venous anastomosis between the retrograde stump of the internal mammary vein and the more medial vein of the inferior epigastric system was performed using a 3.0-mm [employer] database administrator. Release of all clamps revealed good flow across this anastomosis as well. Next, attention was turned towards the arterial anastomosis. A primary hand-sewn anastomosis between the internal mammary artery and inferior epigastric artery was performed using 8-0 nylon suture in a simple running fashion. Release of all clamps revealed good flow across this anastomosis and good perfusion to the deep inferior epigastric cherry pitter flap. There was also noted to be a strong biphasic Doppler signal on the skin paddle. At this point attention was turned towards the third venous anastomosis, which was performed between the superficial inferior epigastric vein and the perforating vein of the internal mammary system. This was performed using a 2.5-mm [employer] database administrator, and release of all clamps revealed good flow across this venous anastomosis as well. At this point the flap was noted to be well-perfused, and therefore it was carefully positioned into the left breast pocket. Care was taken to ensure good lie of the pedicle, without twisting or kinking. The flap was then inset in multiple positions along the chest wall using 2-0 Vicryl suture in a simple interrupted fashion. On the flap was properly inset, Doppler examination revealed a strong biphasic signal. Therefore, two No. 19 round Genaro drains were placed into the left breast pocket and axilla, and brought out through separate stab incisions laterally and secured to the skin with 3-0 nylon sutures. The mastectomy flaps were then redraped. The amount of skin paddle of the LESIA flap to be externalized was marked and redundant skin paddle was de-epithelialized. The skin paddle was then inset to the surrounding mastectomy flap skin edges using 3-0 Monocryl in a buried deep dermal fashion, followed by a 3-0 V-Loc barbed suture in a running subcuticular fashion. Once the left breast closure was completed, attention was turned towards the microvascular transfer of the right breast flap. The left lower abdominal flap was ligated and divided at the most proximal extent of the pedicle dissection. It was sterilely weighed and noted to weigh 1325 g. It was brought up to the right breast pocket, where it was temporarily stapled in place. The microvascular anastomoses were then performed. A 3.0-mm [employer] database administrator was used to anastomose the antegrade stump of the internal mammary vein to the more lateral vein of the inferior epigastric system. Release of all clamps revealed good back flow across this anastomosis. Next, a second venous anastomosis between the retrograde stump of the internal mammary vein and the more medial vein of the inferior epigastric system was performed using a 2.5-mm [employer] database administrator. Release of all clamps revealed good flow across this anastomosis as well. Next, the arterial anastomosis was performed between the internal mammary artery and inferior epigastric artery using an 8-0 nylon suture in a simple running fashion. Release of all clamps revealed good flow across this anastomosis and good perfusion to the microvascular free flap with a strong biphasic Doppler signal in the skin paddle. Finally, a third venous anastomosis was performed on the right side between the superficial inferior epigastric vein and a perforating vein from the internal mammary system using a 3.0-mm [employer] database administrator. Release of all clamps revealed good flow across this third venous anastomosis on the right side. The flap was then inset and the right breast closed in a similar fashion as to the left side, and therefore only 1 side will be dictated. Upon completion of the completion of the bilateral breast closures, there were noted to be strong biphasic Doppler signals. Concurrently closure of the abdomen was performed. The fascial incisions bilaterally were closed in a primary fashion using a 0 V-Loc barbed suture in simple running fashion. Once the fascial closure was completed, the ultrasound system was brought into the field and was sterilely draped. A local anesthetic mixture of 20 mL of Exparel, 30 mL of 0.25% Marcaine and 80 mL of normal saline was used to performed bilateral transversus abdominis plane regional nerve blocks. A total of 30 mL of this local anesthetic mixture was injected into each transversus abdominis plane, again under ultrasound guidance. Once the regional nerve blocks were completed, the patient was placed into a flexed position. Two No. 19 round Genaro drains were placed in the abdominal pocket and brought out through separate stab incisions laterally and secured to the skin with 3-0 nylon sutures. The superior abdominal skin flap was then advanced and closed in layers using 0 Vicryl in an interrupted buried fashion in Maurisio's layer, followed by a 3-0 Monocryl in a buried deep dermal fashion, and finally 3-0 V-Loc suture in a running subcuticular fashion. The site of the umbilicus transposition had been marked and a vertically-oriented ellipse with a core of fat was excised and discarded. The umbilicus was transposed and inset using a 3-0 PDS in a buried deep dermal fashion, followed by 5-0 nylon in a simple running fashion. Once all incisions were closed, Prineo tape was applied to the lower abdominal closure line. Xeroform was applied to the umbilicus, and Dermabond was applied to bilateral breast incisions. All drain exit sites were then dressed with Biopatch and Tegaderm. The patient was then placed into a soft surgical bra for inferior and lateral pole support, and a window was cut out for proper flap monitoring. The patient was then slowly awakened and extubated without incident, and was transported to the recovery room in stable condition. Doppler examination upon entering Recovery revealed strong biphasic Doppler signals. Amirah [id number]
[2018-12-12] MEDS: traMADol HCL 50 MG TABLET PO PRN ×2 (05:29→12:22)
[2018-12-12] MEDS: ACETAMINOPHEN 500 MG TABLET (FP) PO PRN ×2 (05:30→12:21)
[2018-12-12] MEDS ORDERED: ESMOLOL HCL 100,000 MCG/10 ML VIAL ONE (06:10)
[2018-12-12] MEDS: ENOXAPARIN NA (PORCINE) 30 MG/0.3 ML DISP.SYRIN SQ SCH (09:03)
[2018-12-12] MEDS: ASPIRIN 325 MG TABLET PO SCH (09:03)
[2018-12-12] MEDS: DOCUSATE SODIUM 100 MG CAPSULE (FP) PO SCH (09:03)
[2018-12-12] MEDS: diazePAM 5 MG TABLET PO PRN (09:04)
[2018-12-12 10:09] VITALS: PULSE 77; TEMP 98
--- NOTE | 2018-12-12 10:38 | PN ---
Progress Note, Physician Chief Complaint: Left breast cancer multicentric s/p bilateral total mastectomies with left axillary sentinel node biopsy and axillary lymph node dissection with bilateral LESIA flap reconstruction History of Present Illness: The patient was diagnosed with left breast multicentric breast cancer in the UOQ and UIQ after screening mammography and ultrasound and required a left breast mastectomy and decided on bilateral mastectomies which was performed with bilateral LESIA reconstructions on December 09. She was admitted postoperatively for post op pain and wound management. - Current Medication List Current Medications: Active Medications Acetaminophen (Tylenol -) 1,000 mg PO Q6H PRN PRN Reason: PAIN OR FEVER Last Admin: 12/12/18 05:30 Dose: 1,000 mg Aspirin (Asa -) 325 mg PO DAILY [facility] Last Admin: 12/12/18 09:03 Dose: 325 mg Diazepam (Valium -) 5 mg PO Q8H PRN PRN Reason: MUSCLE SPASMS Last Admin: 12/12/18 09:04 Dose: 5 mg Docusate Sodium (Colace -) 100 mg PO BID [facility] Last Admin: 12/12/18 09:03 Dose: 100 mg Enoxaparin Sodium (Lovenox -) 30 mg SQ BID [facility] Last Admin: 12/12/18 09:03 Dose: 30 mg Ondansetron HCl (Zofran Injection) 4 mg IVPUSH Q6H PRN PRN Reason: NAUSEA AND/OR VOMITING Ranitidine HCl (Zantac -) 150 mg PO DAILY PRN PRN Reason: INDIGESTION Last Admin: 12/10/18 18:37 Dose: 150 mg Tramadol HCl (Ultram -) 50 mg PO Q4H PRN PRN Reason: PAIN LEVEL 6-10 Last Admin: 12/12/18 05:29 Dose: 50 mg - Objective Vital Signs: Vital Signs Temperature 98.0 F 12/12/18 10:00 Pulse Rate 77 12/12/18 10:00 Respiratory Rate 24 H 12/12/18 10:00 Blood Pressure 128/92 12/12/18 10:00 O2 Sat by Pulse Oximetry (%) 99 12/12/18 08:00 Constitutional: Yes: Well Nourished, No Distress, Calm Eyes: Yes: WNL HENT: Yes: WNL Neck: Yes: Tenderness Cardiovascular: Yes: Regular Rate and Rhythm Respiratory: Yes: Regular, CTA Bilaterally Gastrointestinal: Yes: WNL ...Rectal Exam: Yes: Deferred Genitourinary: Yes: WNL Breast(s): Yes: Other (Mastectomy wounds clean, dry, and intact. LESIA flaps with excellent doppler signals. Skin flaps with some epidermolysis/ischemia on lower right flap and medial left flap. Drains functioning well.) Musculoskeletal: Yes: WNL Extremities: Yes: WNL Integumentary: Yes: WNL Wound/Incision: Yes: Clean/Dry, Dressing Dry and Intact Neurological: Yes: Alert, Oriented ...Motor Strength: WNL Psychiatric: Yes: WNL Labs: CBC, BMP 12/10/18 07:24 12/10/18 07:24 Problem List - Problems (1) Breast cancer, left breast Assessment/Plan: She is doing well POD#3 s/p bilateral total mastectomies with left axillary lymph node dissection and bilateral LESIA flap reconstruction. Incision wounds clean, dry, and intact. Drains functioning well. LESIA flaps warm viable with excellent dopplerable signals. Skin flaps viable but some ischemia on lower right lime skin flap and medial left lime flap. Good pain control now on tramadol since did not tolerate oxycontin. She is ambulating well and tolerating diet. JULIAN drain teaching. Stable for discharge today. Home on tramadol for pain and cefadroxil antibiotics. Follow-up with Drs. Gonzalez and Susana in 1 week. Record drain outputs daily. VNS set up for discharge. No heavy lifting or exercise. No bath/shower until drains removed. Keep compressive bra on day/night. Code(s): C50.912 - MALIGNANT NEOPLASM OF UNSPECIFIED SITE OF LEFT FEMALE BREAST Qualifiers: Breast location: overlapping sites of breast Estrogen receptor status: positive Patient sex: female Qualified Code(s): C50.812 - Malignant neoplasm of overlapping sites of left female breast; Z17.0 - Estrogen receptor positive status [ER+]
[2018-12-12 12:02] VITALS: BP 125/92
--- NOTE | 2018-12-13 12:54 | SURG ---
Surgery Odd Bundle Worker Note Odd Bundle Worker: Edis Barba PA-C Date of Service: 12/09/18 Diagnosis: 1. Left breast Cancer 2. Acquired abscence of bilateral breasts and nipples Procedure: 1. Immediate left breast reconstruction with deep inferior epigastric performance reporter microvascular free flap 2. Immediate right breast reconstruction with deep inferior epigastric performance reporter microvascular free flap 3. Bilateral partial 3rd rib resection 4. Bilateral exploration of internal mammry vessels with extensive adeventitectomies 5. Bilateral mastectomy skin flap and lower abdominal flap intraperative angiography using indocyanine green 6. Bilateral ultrasound guided transversus abdominus plane regional blocks I was present for the entirety of the operative procedure. For further detail, please refer to operative report. Visit type - Case Type Case Type: Scheduled
[2018-12-13 21:03] VITALS: BMI 48.9
--- NOTE | 2018-12-15 12:12 | PATH ---
Surgical Pathology Report Patient Name: VEORNICA RODRIGUEZ [facility]. Rec. #: [id number] /Age/Gender: 1965 (Age: 53) / F Account: [id number] Location: [facility] POST DOCTORAL FELLOW Taken: 12/09/2018 Received: 12/09/2018 Reported: 12/15/2018 Physicians: Kentrell Meza M.D. Specimen(s) Received A: LEFT AXILLARY SENTINEL LYMPH NODE #1 B: LEFT AXILLARY SENTINEL LYMPH NODE #2 C: LEFT AXILLARY SENTINEL LYMPH NODE #3 D: LEFT BREAST AND AXILLARY CONTENTS, MASTECTOMY E: LEFT AXILLARY CONTENTS F: ANTERIOR MARGIN, UPPER INNER G: ANTERIOR MARGIN, UPPER OUTER H: RIGHT BREAST, MASTECTOMY Clinical History Left breast cancer, upper inner quadrant and upper outer quadrant, multifocal Intraoperative Consult Diagnosis A. Left axillary sentinel lymph node, frozen section: One lymph node, positive for metastatic carcinoma. B. Left axillary sentinel lymph node #2, frozen section: One lymph node, negative for metastatic carcinoma. C. Left axillary sentinel lymph node #3, frozen section: One lymph node, negative for metastatic carcinoma. Cari Oneill M.D., 12/09/2018 Final Diagnosis A. AXILLARY SENTINEL LYMPH NODE #1, LEFT, EXCISION (FS): ONE LYMPH NODE WITH METASTATIC CARCINOMA ON H&E AND CONFIRMED BY AE1/3 IMMUNOHISTOCHEMICAL STAIN (1/1). TUMOR DEPOSIT MEASURES 5 MM IN GREATEST MICROSCOPIC DIMENSION. EXTRANODAL EXTENSION IDENTIFIED. SEE COMMENT. B. AXILLARY SENTINEL LYMPH NODE #2, LEFT, EXCISION (FS): ONE LYMPH NODE NEGATIVE FOR CARCINOMA (0/1). C. AXILLARY SENTINEL LYMPH NODE #3, LEFT, EXCISION (FS): ONE LYMPH NODE NEGATIVE FOR CARCINOMA (0/1). D. BREAST AND AXILLARY CONTENTS, LEFT, MASTECTOMY: MULTIFOCAL, MULTICENTRIC, INVASIVE CARCINOMA (3 FOCI), RANGING IN SIZE FROM 1.31.8 CM IN GREATEST MICROSCOPIC DIMENSION. TWO FOCI OF INVASIVE LOBULAR CARCINOMA, CLASSIC AND PLEOMORPHIC TYPES, NUCLEAR GRADE 2-3 (TUBULE SCORE: 3/3, NUCLEAR GRADE: 2-3/3, MITOTIC SCORE: 1/3; TOTAL ANIKA SCORE: 6-7/9), PRESENT AT UPPER OUTER QUADRANT (UOQ). TUMOR FOCI MEASURES 1.3 AND 1.5 CM IN GREATEST MICROSCOPIC DIMENSION. SMALLER FOCI WITH ASSOCIATED PROMINENT LYMPHOCYTIC INFILTRATE. TUMOR INFILTRATING, LYMPHOCYTES (TILs): >60%. ONE FOCUS OF INVASIVE CARCINOMA WITH MIXED DUCTAL AND LOBULAR FEATURES, MODERATELY DIFFERENTIATED, NUCLEAR GRADE 2-3, (TUBULE SCORE: 3/3, NUCLEAR GRADE: 2-3/3, MITOTIC SCORE: 1/3; TOTAL ANIKA SCORE: 6-7/9), PRESENT AT UPPER INNER QUADRANT (UIQ). TUMOR FOCUS MEASURES 1.8 CM IN GREATEST MICROSCOPIC DIMENSION. FOCAL DUCTAL CARCINOMA IN SITU (DCIS), CRIBRIFORM TYPE, INTERMEDIATE NUCLEAR GRADE, PRESENT AT UPPER INNER QUADRANT (UIQ). EXTENSIVE LOBULAR CARCINOMA IN SITU (LCIS), CLASSIC AND PLEOMORPHIC TYPES. NO DEFINITIVE LYMPHOVASCULAR INVASION IDENTIFIED. SURGICAL MARGINS ARE UNINVOLVED BY CARCINOMA; CARCINOMA IS 5 MM FROM CLOSEST ANTERIOR SOFT TISSUE MARGIN (GROSS MEASUREMENT), SEE SPECIMEN F-G FOR FINAL MARGINS. FOURTEEN LYMPH NODES NEGATIVE FOR CARCINOMA (0/14). SKIN AND NIPPLE PRESENT AND UNINVOLVED BY CARCINOMA. REMAINDER OF BREAST PARENCHYMA SHOWS ATYPICAL DUCTAL AND LOBULAR HYPERPLASIA IN A BACKGROUND OF PROLIFERATIVE FIBROCYSTIC CHANGES INCLUDING STROMAL FIBROSIS, MICROCYSTS, COLUMNAR CELL CHANGES, SCLEROSING ADENOSIS, APOCRINE METAPLASIA, AND ASSOCIATED MICROCALCIFICATIONS. PATHOLOGIC STAGE (pTNM): pT1c(m) pN1a. SEE INVASIVE CARCINOMA CASE SUMMARY BELOW. SEE COMMENT. E. AXILLARY CONTENTS, LEFT, DISSECTION: TWO LYMPH NODES, NEGATIVE FOR CARCINOMA (0/2). F. ANTERIOR MARGIN, UPPER INNER, EXCISION: BENIGN FIBROADIPOSE TISSUE. G. ANTERIOR MARGIN, UPPER OUTER, EXCISION: BENIGN FIBROADIPOSE TISSUE. H. BREAST, RIGHT, MASTECTOMY: LOBULAR CARCINOMA IN SITU (LCIS), CLASSIC TYPE, INVOLVING ADENOSIS PRESENT AT LOWER OUTER QUADRANT (LOQ). REMAINDER OF BREAST PARENCHYMA SHOWS ATYPICAL LOBULAR HYPERPLASIA AND SMALL FIBROADENOMAS IN A BACKGROUND OF PROLIFERATIVE FIBROCYSTIC CHANGES INCLUDING STROMAL FIBROSIS, MICROCYSTS, COLUMNAR CELL CHANGES, SCLEROSING ADENOSIS, APOCRINE METAPLASIA, AND ASSOCIATED MICROCALCIFICATIONS,. FOUR LYMPH NODES NEGATIVE FOR CARCINOMA (0/4). SEE COMMENT. Comment: Part A, Immunohistochemical stain performed and interpreted at [facility] show E-Cadherin is positive in metastatic focus. Part D, Immunohistochemical stain for AE1/3 highlights the tumor foci. In blocks D4 and D6, (2 foci, UOQ) E-Cadherin is negative, while p120 show cytoplasmic staining, supportive of lobular phenotype. In block D9 (UIQ), E-cadherin stain shows membranous staining in a subset of cells. P120 shows both cytoplasmic staining and membranous (subset) staining; supportive of mixed ductal and lobular features. Myoepithelial cell markers (p63 and SMM-HC, Block D4) are lost in the areas of invasive carcinoma; while present in LCIS. Part H, Immunohistochemical stain for E-Cadherin is negative, supportive of lobular phenotype. Myoepithelial cell markers (p63 and SMM-HC) are lost in the areas of invasive carcinoma; while present in LCIS. Immunohistochemical stains performed and interpreted at [facility]: Part A: AE1/3, E-cadherin Part D: p63 and SMM-HC Part H: E-cadherin, p63 and SMM-HC Immunohistochemical stains performed at [place], [place] ([id number]) and interpreted at [facility]: Part D: AE1/3, E-cadherin, p120 Comments Breast Invasive Carcinoma: Surgical Pathology Case Summary (PART D) (Based on AJCC TNM 8 th edition) Procedure _X_ Total mastectomy (including nipple-sparing and skin-sparing mastectomy) Specimen Laterality _X_ Left Tumor Size _X_ Greatest dimension of largest invasive focus >1 mm (millimeters): 18 mm Histologic Type _X_ Invasive lobular carcinoma (2 Foci, UOQ) _X_ Invasive carcinoma with ductal and lobular features ("mixed type carcinoma") (1 Foci, UIQ). Histologic Grade (Anika Histologic Score) Glandular (Acinar)/Tubular Differentiation _X_ Score 3 (<10% of tumor area forming glandular/tubular structures) Nuclear Pleomorphism _X_ Score 2 _X_ Score 3 Mitotic Rate _X_ Score 1 Overall Grade _X_ Grade 2 (scores of 6 or 7) Tumor Focality _X_ Multiple foci of invasive carcinoma Number of foci: 3 Sizes of individual foci: 1.3 (UOQ), 1.5 (UOQ), 1.8 (UIQ) Ductal Carcinoma In Situ (DCIS) _X_ Negative for extensive intraductal component (EIC) Margins Invasive Carcinoma Margins _X_ Uninvolved by invasive carcinoma Distance from closest margin (millimeters): 5 mm in mastectomy (gross measurement, D), additional margins are negative (F & G). Closest margin: anterior soft tissue DCIS Margins _X_ Uninvolved by DCIS Regional Lymph Nodes _X_ Involved by tumor cells Number of Lymph Nodes with Macrometastases (>2 mm): 1 Number of Lymph Nodes with Micrometastases (>0.2 mm to 2 mm and/or >200 cells): 0 Number of Lymph Nodes with Isolated Tumor Cells (=0.2 mm and =200 cells): 0 Size of Largest Metastatic Deposit (millimeters): 5 mm Extranodal Extension: _X_ Present Number of Lymph Nodes Examined: 19 Number of [place] Nodes Examined: 3 Treatment Effect _X_ No known presurgical therapy Lymphovascular Invasion _X_ Not identified Pathologic Stage Classification (pTNM, AJCC 8th Edition) Primary Tumor (Invasive Carcinoma) (pT) _X_ pT1c: Tumor >10 mm but =20 mm in greatest dimension Category (pN) _X_ pN1a: Metastases in 1 to 3 axillary lymph nodes, at least 1 metastasis larger than 2.0 mm Biomarker Studies Results of ER and [place] studies performed on this specimen (block#D9) at [facility] are as follows: ER (clone [id number] mouse monoclonal antibody by [employer]): 90% nuclear staining with strong intensity (Positive). [place] (clone16 mouse monoclonal antibody by [employer]): 70% nuclear staining with moderate to strong intensity (Positive). Results of Her2 (IHC) & Ki-67 studies performed on this specimen (block# D9) at [place], [place] ([id number]) are as follows: Her2 IHC (EP3 from [employer], formerly known as [id number], using [employer] Polymer Refine detection kit): 1+ (Negative). Ki-67: ~10% (Low proliferative index). Positive and negative controls (internal if applicable) show appropriate results. Formalin fixation and cold ischemic times are within current ASCO/CAP recommendations for ER, [place] and Her2 testing. Electronically Signed Karine Knox M.D. Amendments Amended: 12/15/2018 Previous Signout Date: 12/15/2018 Comment: Part H, Diagnosis amended to delete Pleomorphic type. Gross Description A. Received fresh labeled "left axillary sentinel lymph node," is a 1.3 x 1.2 x 0.6 cm lymph node with attached fat. The specimen is bisected and entirely submitted for frozen section. The frozen section residue is entirely submitted in one cassette. B. Received fresh labeled "left axillary sentinel lymph node #2," is a 1.0 x 0.5 x 0.3 cm lymph node with attached fat. The specimen is submitted in toto for frozen section. The frozen section residue is entirely submitted in one cassette. C. Received in formalin labeled "left axillary sentinel node #3," is a 0.7 x 0.5 x 0.3 cm lymph node with attached fat. The specimen is submitted in toto for frozen section. The frozen section residue is entirely submitted in one cassette. D. Received in formalin, labeled "left breast with axillary contents," is a 1209 gram, 27.0 x 21.0 x 6.0 cm. left mastectomy specimen with a short suture marking the superior aspect and a long suture marking the lateral aspect of the specimen, per the surgeon. There is an 8.5 x 7.0 x 2.0 cm portion of axillary fat attached at the lateral aspect of the specimen. The anterior surface displays a 6.5 x 4.3 cm rendon, irregular portion of skin with a 1.1 cm in diameter nipple. The deep margin is inked black and the anterior soft tissue margin is inked blue. The specimen is serially sectioned from medial to lateral. Sectioning reveals a 1.3 x 1.3 x 1.0 cm erndon, indurated mass in the upper outer quadrant (UOQ). The mass is 0.9 cm from the anterior soft tissue margin. There is a metallic biopsy clip identified within the mass. There is a second 1.3 x 0.7 x 0.6 cm, firm nodular mass, also in the UOQ, 4 cm lateral to the first mass. The second mass is 2 cm from the deep margin. There is a third mass identified in the upper inner quadrant (UIQ). The third mass measures 1.8 x 0.8 x 0.8 cm and is 0.5 cm from the anterior soft tissue margin. The remaining breast parenchyma displays multifocal dense white fibrous tissue. Sectioning of the axillary fat reveals multiple lymph nodes measuring up to 2.0 cm in greatest dimension. Permastone Installer sections are submitted in 31 cassettes as follows: 1-serially sectioned nipple; 2-subareolar shave; 3-full face section of first, larger UOQ mass with anterior soft tissue margin; 4-additional section of first, larger UOQ mass; 5-full face section of second, smaller UOQ mass; 6-additional section of second, smaller UOQ mass; 5-4-zsrofsghsx UOQ tissue; 9-full face section of UIQ mass with anterior soft tissue margin; 60-04-woytrrxyzv sections of UIQ mass with anterior soft tissue margin; 12-uninvolved UIQ tissue; 13-14-lower outer quadrant; 15-16-lower inner quadrant; 17-deep margin; 18-skin; 19-21-one trisected lymph node; 22-28-one bisected lymph node each; 29-31-two whole lymph nodes each. E. Received in formalin labeled "left axillary contents," is a 6.5 x 6.0 x 1.8 cm aggregate of yellow, lobulated adipose tissue. Sectioning reveals 2 lymph nodes measuring 0.8 and 1.9 cm in greatest dimension. The lymph nodes are entirely submitted in 3 cassettes as follows: 1-one whole lymph node; 2-3-one bisected lymph node. F. Received in formalin labeled "anterior margin upper inner," is a 4.7 x 3.5 x 1.3 cm portion of fibroadipose tissue with a suture marking the biopsy cavity side, per the surgeon. The new margin is inked blue and the specimen is serially sectioned. The specimen is entirely and sequentially submitted in 7 cassettes. G. Received in formalin labeled "anterior margin upper outer," is a 6.4 x 4.3 x 1.5 cm portion of fibroadipose tissue with a suture marking the biopsy cavity side, per the surgeon. The new margin is inked blue and the specimen is serially sectioned. Permastone Installer sections are sequentially submitted in 10 cassettes. H. Received in formalin, labeled "right breast mastectomy," is a 1099 gram, 21.0 x 20.0 x 6.0 cm. right mastectomy specimen with a short suture marking the superior aspect and a long suture marking the lateral aspect of the specimen, per the surgeon. The anterior surface displays a 7.3 x 3.5 cm rendon, irregular portion of skin with a 1.1 cm in diameter nipple. The deep margin is inked black and the anterior soft tissue margin is inked blue. The specimen is serially sectioned from lateral to medial. Sectioning reveals abundant dense, white, focally firm fibrous tissue. No definitive mass is identified. There are 4 lymph nodes identified at the lateral aspect of the specimen, measuring up to 0.8 cm in greatest dimension. Permastone Installer sections are submitted in 18 cassettes as follows: 1-serially sectioned nipple; 2-subareolar shave; 3-5-upper outer quadrant; 6-7-lower outer quadrant; 8-10-upper inner quadrant; 11-12-lower inner quadrant; 13-skin and anterior soft tissue margin; 14-deep margin; 15-16-one trisected lymph node each; 17-18-one bisected lymph node each. Total formalin fixation time: Approximately 24 hours 12/09/201812/09/2018
== END 2018-12-12 13:37 | disposition home or self-care (01) | DRG 580 ==
LOC: JSAMEDAYSX 06:05 → EDSTATUS 08:00 → JICU 12-10 05:38
PROVIDERS: ADMIT Surgery Surgical Oncology; ATTEND Surgery Surgical Oncology
PROC: 0HRV077 Replacement of Bilateral Breast using Deep Inferior Epigastric Artery Perforator Flap, Open Approach (ICD-10-PCS; 2018-12-09)
PROC: 0HTV0ZZ Resection of Bilateral Breast, Open Approach (ICD-10-PCS; principal; 2018-12-09 09:00)
PROC: 07B60ZX Excision of Left Axillary Lymphatic, Open Approach, Diagnostic (ICD-10-PCS; 2018-12-09 09:00)
DX: C50.212 Malignant neoplasm of upper-inner quadrant of left female breast (principal); Z68.42 Body mass index [BMI] 45.0-49.9, adult; C77.3 Secondary and unspecified malignant neoplasm of axilla and upper limb lymph nodes; C50.412 Malignant neoplasm of upper-outer quadrant of left female breast; Z17.0 Estrogen receptor positive status [ER+]; E66.01 Morbid (severe) obesity due to excess calories
CPT/HCPCS: 36415; 78195-TC; 80048; 84703; 85027; 86850; 86900; 86901; 88307-TC; 88309-TC; 88331-TC; 88341-TC; 94760; 97116-GP; 97161-GP; A9541; J0131; J1644

== ENCOUNTER 2019-01-27 05:51 | Day surgery (SDC) | payer BC ==
[2019-01-26 15:33] VITALS: BMI 46.2
[2019-01-27] MEDS ORDERED: VANCOMYCIN 1,000 MG VIAL (RESTRICTED TO ID ONLY) ONE (07:37)
[2019-01-27] MEDS ORDERED: MIDAZOLAM HCL 2 MG/2 ML SINGLE DOSE VIAL ONE (07:37)
[2019-01-27] MEDS ORDERED: SUCCINYLCHOLINE CHLORIDE 200 MG/10 ML SYRINGE ONE (07:38)
[2019-01-27] MEDS ORDERED: PROPOFOL 20 ML ONE (07:38)
[2019-01-27] MEDS ORDERED: ROCURONIUM BROMIDE 50 MG/5 ML SYRINGE ONE (07:38)
[2019-01-27] MEDS ORDERED: ePHEDrine SULFATE 50 MG/1 ML AMPULE ONE (07:39)
[2019-01-27] MEDS ORDERED: BACITRACIN 15 GM TUBE TOPICAL OINTMENT ONE (09:03)
[2019-01-27] MEDS ORDERED: oxyCODONE HCL 5 MG TABLET PO PRN (09:21)
[2019-01-27] MEDS ORDERED: PROMETHAZINE HCL 25 MG/1 ML VIAL IVPUSH PRN (09:21)
--- NOTE | 2019-01-27 09:29 | OP ---
Operative Note - Note: Operative Date: 01/27/19 Pre-Operative Diagnosis: Necrotic tissue of right breast and abdomen Operation: 1. Debridement and pulse lavage irrigation of breast wound and lower abdominal wound status post bilateral mastectomy with flap reconstruction. 2. Advancement closure breast, right breast wound and abdominal wound. Findings: as dictated Post-Operative Diagnosis: Same as Pre-op Surgeon: Lake Gonzalez Risk Control Product Liability Director: Linda Bucio Anesthesia: General Specimens Removed: cultures sent-abdomen wound, skin sent-right breast Estimated Blood Loss (mls): 10 (ml) Drains & Tubes with Location: yayo left in place, abdomen Fluid Volume Replaced (mls): 800 (ml LR) Operative Report Dictated: Yes
[2019-01-27] MEDS ORDERED: LACTATED RINGERS SOLUTION 1,000 ML IV SCH (09:30)
[2019-01-27] MEDS ORDERED: ACETAMINOPHEN 325 MG TABLET (FP) ONE (09:33)
[2019-01-27] MEDS ORDERED: ACETAMINOPHEN 325 MG TABLET (FP) PO ONE (09:41)
--- NOTE | 2019-01-27 10:17 | OP ---
DATE OF OPERATION: 01/27/2019 SURGEON: Suhas Gonzalez MD OLD COIN DEALER: Linda Bucio PA-C PREOPERATIVE DIAGNOSIS: Necrotic tissue of right breast and abdomen. POSTOPERATIVE DIAGNOSIS: Necrotic tissue of right breast and abdomen. OPERATIVE PROCEDURE: 1. Debridement and pulse lavage irrigation of breast wound and lower abdominal wound status post bilateral mastectomy with flap reconstruction. 2. Advancement closure breast, right breast wound and abdominal wound. OPERATIVE INDICATIONS: Patient is a 53-year-old white female who was brought to the operating room previously for bilateral mastectomy reconstruction with deep flap. The patient presented in the office with evidence of breakdown of her mastectomy skin on the right breast as well as the lower abdominal incision from deep flap which and had opening down to the fascia with draining seromatous fluid. There was no evidence of infection, but the patient just started chemotherapy for her breast cancer treatment. The patient was brought to the operating room on an urgent basis in order to close these open wounds with debridement and closure. The risks and benefits of surgical versus nonsurgical alternatives as well as the material complications of the procedure were described in detail previously in the office as well as today in the holding area where she was marked for the procedure and discussion. OPERATIVE PROCEDURE IN DETAIL: The patient was taken to the operating room, and after induction of general anesthesia in the supine position, the areas on the breasts on the lower portion of the skin flap on the right breast as well as the area around the umbilicus and two areas on the lower abdomen measuring approximately 20 cm in greatest dimension were opened with the larger one being down to the underlying rectus abdominis fascia. After induction of general anesthesia, attention was turned to the wounds. The wounds were sharply debrided on their edges with the scalpel down through the skin to the subcutaneous tissue on the breast and then separately on the abdomen with good blood flow seen at the edges of the wound margins. Copious irrigation of the wounds were carried out using 6 L of saline with a pulse lavage active directory architect especially in the abdominal area where there was a large cavity seen from the right lateral flank to the midline and beyond on the left side. This was curetted using sharp curettes and then copiously irrigated with 6 L of saline containing bacitracin. Once this was accomplished, a 15 Genaro round drain was brought out through a separate stab wound inferiorly away from the incisions, and then advancement closures were carried out. Separate closures were carried out on the breast as well as the abdomen. The breast was closed with half-buried mattress sutures in interrupted fashion along the breast advancing the lower pole of the breast upwards and closing the skin and subcutaneous tissue. The abdomen was also closed in multiple layers using 2-0 Vicryl sutures on the deep tissue over Scarpas fascia and a secondary layer of interrupted vertical mattress running sutures with 3-0 nylon on both wounds. Sterile dressings using Bacitracin on the breast, Xeroform on the abdomen, and fluff dressings with a surgi-bra and an abdominal binder were placed. The patient tolerated the procedure well. She was awakened and transferred to the recovery room in satisfactory condition. NIKITA GONZALEZ M.D. [id number]
[2019-01-27 10:55] VITALS: TEMP 97.8
[2019-01-27 11:01] VITALS: BP 136/75; PULSE 78
--- NOTE | 2019-01-31 11:57 | SURG ---
Surgery Head Of Advertising Note Head Of Advertising: Linda Bucio PA-C (Suzy) Date of Service: 01/27/19 Diagnosis: Necrotic tissue of right breast and abdomen Procedure: 1. Debridement and pulse lavage irrigation of breast wound and lower abdominal wound status post bilateral mastectomy with flap reconstruction. 2. Advancement closure breast, right breast wound and abdominal wound. I was present for the entirety of the operative procedure. For further detail, please refer to operative report. Visit type - Case Type Case Type: Scheduled - Emergency Emergency Visit: No - New patient This patient is new to me today: Yes Date on this admission: 01/31/19 - Critical Care Critical Care patient: No
--- NOTE | 2019-01-31 12:46 | PATH ---
Surgical Pathology Report Patient Name: VERONICA RODRIGUEZ [facility]. Rec. #: [id number] /Age/Gender: 1965 (Age: 53) / F Account: [id number] Location: [facility] AM[facility] Taken: 01/27/2019 Received: 01/27/2019 Reported: 01/31/2019 Physicians: Lake Gonzalez Specimen(s) Received DEBRIDED RIGHT BREAST TISSUE Clinical History Post mastectomy open wound abdomen and right breast Final Diagnosis BREAST TISSUE, RIGHT, DEBRIDEMENT: SKIN AND FIBROADIPOSE TISSUE SHOWING ULCERATION, ACUTE NECROTIZING INFLAMMATION AND GRANULATION TISSUE FORMATION. Electronically Signed Tiffani Hein M.D. Gross Description Received in formalin labeled "right debrided breast tissue," is a 5.5 x 2.8 x 0.7 cm aggregate of multiple focally necrotic appearing portions of skin and soft tissue. [employer] sections are submitted in one cassette. /01/28/2019 saudi01/28/2019
== END 2019-01-27 10:25 | disposition home or self-care (01) ==
LOC: FASU 05:51
PROVIDERS: ATTEND Plastic Surgery
PROC: 0HBT0ZZ Excision of Right Breast, Open Approach (ICD-10-PCS; 2019-01-27)
PROC: 0JX60ZB Transfer Chest Subcutaneous Tissue and Fascia with Skin and Subcutaneous Tissue, Open Approach (ICD-10-PCS; 2019-01-27)
PROC: 0JB80ZZ Excision of Abdomen Subcutaneous Tissue and Fascia, Open Approach (ICD-10-PCS; principal; 2019-01-27 08:10)
DX: N64.1 Fat necrosis of breast (principal); N64.89 Other specified disorders of breast; L76.82 Other postprocedural complications of skin and subcutaneous tissue; Y83.8 Other surgical procedures as the cause of abnormal reaction of the patient, or of later complication, without mention of misadventure at the time of the procedure
CPT/HCPCS: 84703; 87070; 87205; 88304-TC; 94760